=== PATIENT | male | born 1970 ===

== ENCOUNTER 2019-03-29 08:47 | Observation (INO) | payer OTHER ==
--- NOTE | 2019-03-29 09:03 | Event Note ---
ED Screening Note ED Screening Note: woke up with cp on coumadin sp cva 6-19 also on metformin glipizide statin to main This initial assessment/diagnostic orders/clinical plan/treatment(s) is/are subject to change based on patients health status, clinical progression and re- assessment by fellow clinical providers in the ED. Further treatment and workup at subsequent clinical providers discretion. Patient/guardian urged not to elope from the ED as their condition may be serious if not clinically assessed and managed. Initial orders include:
[2019-03-29 09:21] LABS: Basophils % (Auto) 0.8 % (0.0-1.8); Eosinophils # (Auto) 0.3 K/mm3 (0.0-0.4); Eosinophils % (Auto) 4.7 % (0.0-4.3); Hematocrit 35.6 % (35.5-45.6); Hemoglobin 12.7 gm/dl (11.8-15.2); Lymphocytes # (Auto) 2.2 K/mm3 (1.2-5.4); Lymphocytes % (Auto) 42.2 % (13.4-35.0); Mean Corpuscular HGB Conc 36 % (32-34); Mean Corpuscular Volume 84 fl (84-94); Monocytes # (Auto) 0.4 K/mm3 (0.0-0.8); Monocytes % (Auto) 6.8 % (0.0-7.3); Platelet Count 152 K/mm3 (140-440); Red Blood Count 4.22 M/mm3 (3.65-5.03)
[2019-03-29 09:42] LABS: Alanine Aminotransferase 37 units/L (7-56); Albumin 3.8 g/dL (3.9-5); BUN/Creatinine Ratio 7; Blood Urea Nitrogen 4 mg/dL (9-20); Calcium 9.2 mg/dL (8.4-10.2); Hemolysis Index 15
--- NOTE | 2019-03-29 09:49 | XRay Report ---
ROUTINE CHEST, TWO VIEWS: HISTORY: chest pain. The trachea, heart, mediastinal contour, lung peck and bony thorax are unremarkable. IMPRESSION: Unremarkable chest x-ray.
[2019-03-29 09:57] LABS: INR 2.02 (0.87-1.13)
--- NOTE | 2019-03-29 11:01 | Emergency Department Report ---
ED Chest Pain HPI - General Chief Complaint: Chest Pain Stated Complaint: CHEST PAIN Time Seen by Provider: 03/29/19 09:15 Source: family Mode of arrival: Ambulatory Limitations: No Limitations, Language Barrier - History of Present Illness Initial Comments: Patient is a 48-year-old male that presents to emergency room with complaints of chest pain. Patient states his chest pain started 3 hours ago. Patient states he's had nausea without vomiting. His pain is not radiating. He states he has a history of CVA, diabetes and hypertension. Patient states his CVA was February of this year. Patient states his pain is a 5 out of 10 and is a pressure in the center of his chest. -: Sudden Onset: during rest Pain Location: substernal, left chest Pain Radiation: none Severity: moderate Severity scale (0 -10): 5 Quality: tightness, heaviness, pressure Consistency: constant Improves With: rest Worsens With: exertion re: nausea. denies: vomting, diaphoresis, dyspnea, sense of impending doom Other Symptoms: denies: cough, fever, syncope, rash, acid taste in mouth, leg swelling, palpitations, burping Treatments Prior to Arrival: none Aspirin use within the Past 7 Days: (1) Yes - Related Data On Oral Contraceptives: No Allergies Allergy/AdvReac Type Severity Reaction Status Date / Time No Known Allergies Allergy Unverified 03/29/19 12:10 Heart Score - HEART Score History: Moderately suspicious EKG: Non-specific Age: 45-65 Risk factors: > 3 risk factors or hx of atherosclerotic disease Troponin: < normal limit HEART Score: 5 ED Review of Systems ROS: Stated complaint: CHEST PAIN Other details as noted in HPI Constitutional: denies: chills, fever Eyes: denies: eye pain, eye discharge, vision change ENT: denies: ear pain, throat pain Respiratory: denies: cough, shortness of breath, wheezing Cardiovascular: chest pain. denies: palpitations Endocrine: no symptoms reported Gastrointestinal: denies: abdominal pain, nausea, diarrhea Genitourinary: denies: urgency, dysuria Musculoskeletal: denies: back pain, joint swelling, arthralgia Skin: denies: rash, lesions Neurological: denies: headache, weakness, paresthesias Psychiatric: denies: anxiety, depression Hematological/Lymphatic: denies: easy bleeding, easy bruising ED Past Medical Hx - Past Medical History Previous Medical History?: Yes Hx Hypertension: Yes Hx CVA: Yes (March 2019) Hx Diabetes: Yes - Surgical History Past Surgical History?: Yes Additional Surgical History: for CVA - Family History Family history: no significant - Social History Smoking Status: Never Smoker Substance Use Type: None ED Physical Exam - General Limitations: No Limitations, Language Barrier General appearance: alert, in no apparent distress - Head Head exam: Present: atraumatic, normocephalic - Eye Eye exam: Present: normal appearance - ENT ENT exam: Present: mucous membranes moist - Neck Neck exam: Present: normal inspection - Respiratory Respiratory exam: Present: normal lung sounds bilaterally. Absent: respiratory distress, chest wall tenderness, accessory muscle use - Cardiovascular Cardiovascular Exam: Present: regular rate, normal rhythm. Absent: systolic murmur, diastolic murmur, rubs, gallop - GI/Abdominal GI/Abdominal exam: Present: soft, normal bowel sounds - Rectal Rectal exam: Present: deferred - Extremities Exam Extremities exam: Present: normal inspection - Back Exam Back exam: Present: normal inspection - Neurological Exam Neurological exam: Present: alert, oriented X3 - Psychiatric Psychiatric exam: Present: normal affect, normal mood - Skin Skin exam: Present: warm, dry, intact, normal color. Absent: rash ED Course Vital Signs 03/29/19 03/29/19 03/29/19 09:04 09:27 09:31 Temperature 98.1 F Pulse Rate 87 74 69 Respiratory 16 13 Rate Blood Pressure 112/74 130/79 O2 Sat by Pulse 100 99 Oximetry 03/29/19 03/29/19 03/29/19 09:45 10:00 10:15 Temperature Pulse Rate 70 65 71 Respiratory 12 14 15 Rate Blood Pressure 130/79 130/79 129/77 O2 Sat by Pulse 99 98 98 Oximetry 03/29/19 03/29/19 03/29/19 10:31 10:45 11:00 Temperature Pulse Rate 64 58 L 59 L Respiratory 12 13 12 Rate Blood Pressure 130/79 130/79 129/77 O2 Sat by Pulse 99 100 99 Oximetry 03/29/19 03/29/19 03/29/19 11:15 11:30 11:45 Temperature Pulse Rate 69 71 66 Respiratory 12 14 13 Rate Blood Pressure 131/75 131/75 129/77 O2 Sat by Pulse 98 98 98 Oximetry 0603/29/19 03/29/19 12:00 12:15 12:31 Temperature Pulse Rate 61 61 82 Respiratory 13 14 13 Rate Blood Pressure 131/72 131/72 131/72 O2 Sat by Pulse 99 97 99 Oximetry 03/29/19 12:45 Temperature Pulse Rate 84 Respiratory 12 Rate Blood Pressure 131/72 O2 Sat by Pulse 98 Oximetry - Reevaluation(s) Reevaluation #1: Discussed all results with patient. Patient will be admitted to the hospitalist service. Patient agrees to plan of care. 03/29/19 11:20 - Consultations Consultation #1: 03/29/19 11:20 Hospitalist consulted for admission. Hospitalist to admit patient. Hospitalist to assume care patient. JOSUÉ score - Josué Score Age > 65: (0) No Aspirin use within the Past 7 Days: (1) Yes 3 or more CAD Risk Factors: (1) Yes 2 or more Angina events in past 24 hrs: (0) No Known CAD with more than 50% Stenosis: (0) No Elevated Cardiac Markers: (0) No ST Deviation Greater than 0.5mm: (0) No JOSUÉ Score: 2 ED Medical Decision Making - Lab Data Result diagrams: 03/29/19 09:07 03/29/19 09:07 - EKG Data -: EKG Interpreted by Me EKG shows normal: sinus rhythm, axis, intervals, QRS complexes, ST-T waves Rate: normal - EKG Data Interpretation: LVH - Radiology Data Radiology results: report reviewed, image reviewed interpreted by me: No acute findings on chest x-ray. ROUTINE CHEST, TWO VIEWS: HISTORY: chest pain. The trachea, heart, mediastinal contour, lung peck and bony thorax are unremarkable. IMPRESSION: Unremarkable chest x-ray. - Medical Decision Making Patient is a 48-year-old male that presents to emergency with chest pain. Patient will be admitted to the hospitalist service. Patient's initial cardiac workup was negative. Patient's EKG shows ST elevation secondary to LVH and early re-pole. Patient's troponin negative. Patient's labs unremarkable. - Differential Diagnosis chest pain. ACS. Critical Care Time: Yes Critical care attestation.: If time is entered above; I have spent that time in minutes in the direct care of this critically ill patient, excluding procedure time. Critical Care Time: 35 MINUTES ED Disposition Clinical Impression: Essential hypertension Chest pain Qualifiers: Chest pain type: unspecified Qualified Code(s): R07.9 - Chest pain, unspecified Diabetes Qualifiers: Diabetes mellitus type: type 2 Diabetes mellitus care home insulin use: unspecified care home insulin use status Diabetes mellitus complication status: without complication Qualified Code(s): E11.9 - Type 2 diabetes mellitus without complications Disposition: OP ADMIT IP TO THIS HOSP Is pt being admited?: Yes Does the pt Need Aspirin: No Condition: Critical Time of Disposition: 11:24
[2019-03-29] MEDS ORDERED: ASPIRIN PO ONE (11:28)
[2019-03-29] MEDS ORDERED: ASPIRIN ONE (12:28)
[2019-03-29] MEDS ORDERED: SODIUM CHLORIDE FLUSH SYRINGE 10 ML IV PRN (18:39)
[2019-03-29] MEDS ORDERED: ZOFRAN IV PRN (18:39)
[2019-03-29] MEDS ORDERED: MORPHINE IV PRN (18:39)
[2019-03-29] MEDS ORDERED: TYLENOL PO PRN (18:39)
--- NOTE | 2019-03-29 18:39 | History and Physical Report ---
History of Present Illness Date of examination: 03/29/19 Date of admission: 03/29/19 11:24 Chief complaint: Chest pain for 3 hours History of present illness: Patient is a 48-year-old male that presents to emergency room with complaints of chest pain. Patient states his chest pain started 3 hours ago. Patient states he's had nausea without vomiting. His pain is not radiating. He states he has a history of CVA, diabetes and hypertension. Patient states his CVA was February of this year. Patient states his pain is a 5 out of 10 and is a pressure in the center of his chest.No exacerbating or relieving factors. Past Medical History Previous Medical History?: Yes Hypertension: Yes CVA: Yes (March 2019) Diabetes: Yes Surgical History Past Surgical History?: Yes Additional Surgical History: for CVA Family History Family history: no significant Social History Smoking Status: Never Smoker Substance Use Type: None Review of Systems ROS: Stated complaint: CHEST PAIN Other details as noted in HPI Constitutional: denies: chills, fever Eyes: denies: eye pain, eye discharge, vision change ENT: denies: ear pain, throat pain Respiratory: denies: cough, shortness of breath, wheezing Cardiovascular: chest pain. denies: palpitations Endocrine: no symptoms reported Gastrointestinal: denies: abdominal pain, nausea, diarrhea Genitourinary: denies: urgency, dysuria Musculoskeletal: denies: back pain, joint swelling, arthralgia Skin: denies: rash, lesions Neurological: denies: headache, weakness, paresthesias Psychiatric: denies: anxiety, depression Hematological/Lymphatic: denies: easy bleeding, easy bruising Medications and Allergies Allergies Allergy/AdvReac Type Severity Reaction Status Date / Time No Known Allergies Allergy Unverified 03/29/19 12:10 Home Medications Medication Instructions Recorded Confirmed Last Taken Type Atorvastatin [Lipitor Tab] 80 mg PO QHS 03/29/19 03/29/19 Unknown History Nystatin [Nystatin SUSP] 5 ml PO QID 03/29/19 03/29/19 Unknown History Warfarin [Coumadin] 4 mg PO QDAY 03/29/19 03/29/19 Unknown History glipiZIDE [Glucotrol] 5 mg PO BID 03/29/19 03/29/19 Unknown History metFORMIN [Glucophage] 500 mg PO BID 03/29/19 03/29/19 Unknown History Exam - Constitutional Vitals: Temp Pulse Resp BP Pulse Ox 98.2 F 80 16 123/74 99 03/29/19 17:08 03/29/19 17:08 03/29/19 17:08 03/29/19 17:08 03/29/19 17:08 General appearance: Present: no acute distress, well-nourished - EENT Eyes: Present: PERRL ENT: hearing intact, clear oral mucosa - Neck Neck: Present: supple, normal ROM - Respiratory Respiratory effort: normal Respiratory: bilateral: CTA - Cardiovascular Heart rate: 78 Rhythm: regular Heart Sounds: Present: S1 & S2. Absent: rub, click - Extremities Extremities: no ischemia, pulses symmetrical, No edema Peripheral Pulses: within normal limits - Abdominal General gastrointestinal: Present: soft, non-tender, non-distended, normal bowel sounds Male genitourinary: Present: normal - Rectal Rectal Exam: deferred - Integumentary Integumentary: Present: clear, warm, dry - Musculoskeletal Musculoskeletal: gait normal, strength equal bilaterally - Psychiatric Psychiatric: appropriate mood/affect, intact judgment & insight - Neurologic Neurologic: CNII-XII intact, moves all extremities - Allied Health Allied health notes reviewed: nursing, case management Results - Labs CBC & Chem 7: 03/30/19 04:23 03/30/19 04:23 Labs: Laboratory Last Values WBC 5.3 K/mm3 (4.5-11.0) 03/29/19 09:07 RBC 4.22 M/mm3 (3.65-5.03) 03/29/19 09:07 Hgb 12.7 gm/dl (11.8-15.2) 03/29/19 09:07 Hct 35.6 % (35.5-45.6) 03/29/19 09:07 MCV 84 fl (84-94) 03/29/19 09:07 MCH 30 pg (28-32) 03/29/19 09:07 MCHC 36 % (32-34) H 03/29/19 09:07 RDW 15.0 % (13.2-15.2) 03/29/19 09:07 Plt Count 152 K/mm3 (140-440) 03/29/19 09:07 Lymph % (Auto) 42.2 % (13.4-35.0) H 03/29/19 09:07 [place] % (Auto) 6.8 % (0.0-7.3) 03/29/19 09:07 Eos % (Auto) 4.7 % (0.0-4.3) H 03/29/19 09:07 Baso % (Auto) 0.8 % (0.0-1.8) 03/29/19 09:07 Lymph # 2.2 K/mm3 (1.2-5.4) 03/29/19 09:07 [place] # 0.4 K/mm3 (0.0-0.8) 03/29/19 09:07 Eos # 0.3 K/mm3 (0.0-0.4) 03/29/19 09:07 Baso # 0.0 K/mm3 (0.0-0.1) 03/29/19 09:07 Seg Neutrophils % 45.5 % (40.0-70.0) 03/29/19 09:07 Seg Neutrophils # 2.4 K/mm3 (1.8-7.7) 03/29/19 09:07 PT 22.4 Sec. (12.2-14.9) H 03/29/19 09:07 INR 2.02 (0.87-1.13) H 03/29/19 09:07 APTT 36.0 Sec. (24.2-36.6) 03/29/19 09:07 Sodium 139 mmol/L (137-145) 03/29/19 09:07 Potassium 4.1 mmol/L (3.6-5.0) 03/29/19 09:07 Chloride 101.4 mmol/L (98-107) 03/29/19 09:07 Carbon Dioxide 26 mmol/L (22-30) 03/29/19 09:07 16 mmol/L 03/29/19 09:07 BUN 4 mg/dL (9-20) L 03/29/19 09:07 0.6 mg/dL (0.8-1.5) L 03/29/19 09:07 Estimated GFR > 60 ml/min 03/29/19 09:07 7 % 03/29/19 09:07 Glucose 126 mg/dL (75-100) H 03/29/19 09:07 POC Glucose 199 (70-105) H 03/29/19 16:04 Calcium 9.2 mg/dL (8.4-10.2) 03/29/19 09:07 0.50 mg/dL (0.1-1.2) 03/29/19 09:07 AST 20 units/L (5-40) 03/29/19 09:07 ALT 37 units/L (7-56) 03/29/19 09:07 58 units/L (35-129) 03/29/19 09:07 < 0.010 ng/mL (0.00-0.029) 03/29/19 14:34 6.5 g/dL (6.3-8.2) 03/29/19 09:07 3.8 g/dL (3.9-5) L 03/29/19 09:07 1.4 % 03/29/19 09:07 Short CBC 03/29/19 03/30/19 Range/Units 09:07 04:23 WBC 5.3 5.4 (4.5-11.0) K/mm3 Hgb 12.7 12.0 (11.8-15.2) gm/dl Hct 35.6 33.2 L (35.5-45.6) % Plt Count 152 141 (140-440) K/mm3 BMP 03/29/19 03/30/19 09:07 04:23 Sodium 139 139 Potassium 4.1 5.3 H D Chloride 101.4 101.1 Carbon Dioxide 26 27 BUN 4 L 8 L Creatinine 0.6 L 0.8 Glucose 126 H 129 H Calcium 9.2 10.7 H D Cardiac Enzymes 03/29/19 03/29/19 03/29/19 Range/Units 09:07 14:34 20:05 Troponin T < 0.010 < 0.010 < 0.010 (0.00-0.029) ng/mL 03/30/19 Range/Units 00:17 Troponin T < 0.010 (0.00-0.029) ng/mL Liver Function 03/29/19 03/30/19 Range/Units 09:07 04:23 Total Bilirubin 0.50 0.50 (0.1-1.2) mg/dL AST 20 23 (5-40) units/L ALT 37 34 (7-56) units/L Alkaline Phosphatase 58 83 (35-129) units/L Albumin 3.8 L 3.8 L (3.9-5) g/dL Urine 03/29/19 Range/Units 18:50 Urine Color Yellow (Yellow) Urine pH 6.0 (5.0-7.0) Ur Specific [place] 1.014 (1.003-1.030) Urine Protein <15 mg/dl (Negative) mg/dL Urine Glucose (UA) >=500 (Negative) mg/dL - Imaging and Cardiology EKG: report reviewed (SInus rhythm 73/min) Chest x-ray: report reviewed (NAF) Assessment and Plan Advance Directives: Yes (Full code) VTE prophylaxis?: Chemical Plan of care discussed with patient/family: Yes - Patient Problems (1) Chest pain Current Visit: Yes Status: Acute Qualifiers: Chest pain type: unspecified Qualified Code(s): R07.9 - Chest pain, u nspecified Plan to address problem: Chest pain r/o HI Serial troponins and Lexiscan in AM (2) Essential hypertension Current Visit: Yes Status: Chronic Plan to address problem: Cont antihypertensives (3) T2DM (type 2 diabetes mellitus) Current Visit: Yes Status: Chronic Qualifiers: Diabetes mellitus retirement insulin use: unspecified retirement insulin use status Plan to address problem: Cont Coverage Check A1c (4) DVT prophylaxis Current Visit: Yes Status: Acute Plan to address problem: On Lovenox
[2019-03-29 19:34] LABS: Bacteria,Urine 1+ /HPF (Negative); Bilirubin,Urine NEG (Negative); Blood,Urine SM (Negative); Color,Urine Yellow (Yellow); Mucus,Urine FEW /HPF; Protein,Urine <15 mg/dL mg/dL (Negative); Urobilinogen,Urine < 2.0 mg/dL (<2.0); WBC,Urine < 1.0 /HPF (0.0-6.0)
[2019-03-29] MEDS: PEPCID PO SCH (21:57)
[2019-03-29] MEDS: HumaLOG SUB-Q SCH (21:57)
[2019-03-29] MEDS: SODIUM CHLORIDE FLUSH SYRINGE 10 ML IV SCH (21:58)
[2019-03-30 04:54] LABS: Basophils % (Auto) 0.8 % (0.0-1.8); Eosinophils # (Auto) 0.2 K/mm3 (0.0-0.4); Eosinophils % (Auto) 4.3 % (0.0-4.3); Hematocrit 33.2 % (35.5-45.6); Lymphocytes # (Auto) 2.2 K/mm3 (1.2-5.4); Lymphocytes % (Auto) 41.2 % (13.4-35.0); Mean Corpuscular HGB Conc 36 % (32-34); Mean Corpuscular Volume 84 fl (84-94); Monocytes # (Auto) 0.4 K/mm3 (0.0-0.8); Monocytes % (Auto) 7.4 % (0.0-7.3); Platelet Count 141 K/mm3 (140-440); Red Blood Count 3.97 M/mm3 (3.65-5.03); Red Cell Distribution Width 14.9 % (13.2-15.2)
[2019-03-30 05:21] LABS: Alanine Aminotransferase 34 units/L (7-56); Albumin 3.8 g/dL (3.9-5); BUN/Creatinine Ratio 10; Blood Urea Nitrogen 8 mg/dL (9-20); Calcium 10.7 mg/dL (8.4-10.2); Hemolysis Index 13
[2019-03-30] MEDS ORDERED: LEXISCAN IV ONE (08:15)
[2019-03-30] MEDS: HumaLOG SUB-Q SCH ×2 (09:04→13:39)
[2019-03-30] MEDS ORDERED: KIONEX PO NR (09:05)
--- NOTE | 2019-03-30 09:07 | Progress Note ---
Assessment and Plan Assessment and plan: Patient is a 48 yo Danish speaking man with a history of CVA with right eye diplopia (wears a patch), ?afib on Warfarin, type 2 DM and hypertension who presents with chest pains. His family at bedside were the Interpreters. He is from [place] and needs PCP. He needs medication refills. He really doesn't know why he is on Warfarin. He denies blood clots. Chest pains, stress test negative, costochronditis most likely Hyperkalemia: repeat and if still keenan then treat with kayexalate, HyperCalcemia: IVFs, repeat calcium suspect Afib, sr currently, INR is 2.02 Type 2 DM: SSI History Interval history: Patient was seen and examined. Follow-up on current diagnosis chest pains. No overnight events reported to me. Patient denies any shortness breath, nausea/vomiting or severe headaches. Imaging, nursing note, chart, labs and old chart reviewed. Discussed with patient. Gen: WDWN, NAD, Awake, Alert, Orientated HEENT: NCAT, EOMI, PERRL, OP Clear Neck: supple, no adenopathy, no thyromegaly, no JVD CVS/Heart: RRR, normal S1S2, pulses present bilaterally Chest/Lungs: CTA B, Symmetrical chest expansion, good air entry bilaterally GI/Abdomen: soft, NTND, good bowel sounds, no guarding or rebound /Bladder: no suprapubic tenderness, no CVA or paraspinal tenderness Extermity/Skin: no c/c/e, no obvious rash MSK: FROM x 4 Neuro: CN 2-12 grossly intact, no new focal deficits Psych: calm Hospitalist Physical - Constitutional Vitals: Temp Pulse Resp BP Pulse Ox 98.0 F 76 18 111/73 98 03/30/19 04:44 03/30/19 05:00 03/30/19 04:44 03/30/19 04:44 03/30/19 04:44 General appearance: Present: no acute distress, well-nourished Results - Labs CBC & Chem 7: 03/30/19 04:23 03/30/19 04:23 Labs: Laboratory Last Values WBC 5.4 K/mm3 (4.5-11.0) 03/30/19 04:23 RBC 3.97 M/mm3 (3.65-5.03) 03/30/19 04:23 Hgb 12.0 gm/dl (11.8-15.2) 03/30/19 04:23 Hct 33.2 % (35.5-45.6) L 03/30/19 04:23 MCV 84 fl (84-94) 03/30/19 04:23 MCH 30 pg (28-32) 03/30/19 04:23 MCHC 36 % (32-34) H 03/30/19 04:23 RDW 14.9 % (13.2-15.2) 03/30/19 04:23 Plt Count 141 K/mm3 (140-440) 03/30/19 04:23 Lymph % (Auto) 41.2 % (13.4-35.0) H 03/30/19 04:23 [place] % (Auto) 7.4 % (0.0-7.3) H 03/30/19 04:23 Eos % (Auto) 4.3 % (0.0-4.3) 03/30/19 04:23 Baso % (Auto) 0.8 % (0.0-1.8) 03/30/19 04:23 Lymph # 2.2 K/mm3 (1.2-5.4) 03/30/19 04:23 [place] # 0.4 K/mm3 (0.0-0.8) 03/30/19 04:23 Eos # 0.2 K/mm3 (0.0-0.4) 03/30/19 04:23 Baso # 0.0 K/mm3 (0.0-0.1) 03/30/19 04:23 Seg Neutrophils % 46.3 % (40.0-70.0) 03/30/19 04:23 Seg Neutrophils # 2.5 K/mm3 (1.8-7.7) 03/30/19 04:23 PT 22.4 Sec. (12.2-14.9) H 03/29/19 09:07 INR 2.02 (0.87-1.13) H 03/29/19 09:07 APTT 36.0 Sec. (24.2-36.6) 03/29/19 09:07 Sodium 139 mmol/L (137-145) 03/30/19 04:23 Potassium 5.3 mmol/L (3.6-5.0) H D 03/30/19 04:23 Chloride 101.1 mmol/L (98-107) 03/30/19 04:23 Carbon Dioxide 27 mmol/L (22-30) 03/30/19 04:23 15 mmol/L 03/30/19 04:23 BUN 8 mg/dL (9-20) L 03/30/19 04:23 0.8 mg/dL (0.8-1.5) 03/30/19 04:23 Estimated GFR > 60 ml/min 03/30/19 04:23 10 % 03/30/19 04:23 Glucose 129 mg/dL (75-100) H 03/30/19 04:23 POC Glucose 114 (70-105) H 03/30/19 08:12 7.4 % (4-6) H 03/29/19 20:05 Calcium 10.7 mg/dL (8.4-10.2) H D 03/30/19 04:23 0.50 mg/dL (0.1-1.2) 03/30/19 04:23 AST 23 units/L (5-40) 03/30/19 04:23 ALT 34 units/L (7-56) 03/30/19 04:23 83 units/L (35-129) 03/30/19 04:23 < 0.010 ng/mL (0.00-0.029) 03/30/19 00:17 6.8 g/dL (6.3-8.2) 03/30/19 04:23 3.8 g/dL (3.9-5) L 03/30/19 04:23 1.3 % 03/30/19 04:23 Yellow (Yellow) 03/29/19 18:50 Clear (Clear) 03/29/19 18:50 6.0 (5.0-7.0) 03/29/19 18:50 Ur Specific [place] 1.014 (1.003-1.030) 03/29/19 18:50 <15 mg/dl mg/dL (Negative) 03/29/19 18:50 >=500 mg/dL (Negative) 03/29/19 18:50 Neg mg/dL (Negative) 03/29/19 18:50 Sm (Negative) 03/29/19 18:50 Neg (Negative) 03/29/19 18:50 Neg (Negative) 03/29/19 18:50 < 2.0 mg/dL (<2.0) 03/29/19 18:50 Ur Leukocyte Esterase Neg (Negative) 03/29/19 18:50 < 1.0 /HPF (0.0-6.0) 03/29/19 18:50 2.0 /HPF (0.0-6.0) 03/29/19 18:50 U Epithel Cells (Auto) < 1.0 /HPF (0-13.0) 03/29/19 18:50 1+ /HPF (Negative) 03/29/19 18:50 Few /HPF 03/29/19 18:50 Active Medications - Current Medications Current Medications: Generic Name Dose Route Start Last Admin Trade Name Freq PRN Reason Stop Dose Admin Acetaminophen 650 mg 03/29/19 18:39 Tylenol PO Q4H PRN Pain MILD(1-3)/Fever >100.5/WHEELER Famotidine 20 mg 03/29/19 22:00 03/29/19 21:57 Pepcid PO 20 mg BID CHRISTINE Administration Insulin Human Lispro 0 unit 03/29/19 22:00 03/29/19 21:57 Humalog SUB-Q 4 unit ACHS CHRISTINE Administration Protocol Morphine Sulfate 2 mg 03/29/19 18:39 Morphine IV Q4H PRN Pain, Moderate (4-6) Ondansetron HCl 4 mg 03/29/19 18:39 Zofran IV Q8H PRN Nausea And Vomiting Sodium Chloride 10 ml 03/29/19 22:00 03/29/19 21:58 Sodium Chloride Flush Syringe 10 Ml IV 10 ml BID CHRISTINE Administration Sodium Chloride 10 ml 03/29/19 18:39 Sodium Chloride Flush Syringe 10 Ml IV PRN PRN LINE FLUSH Sodium Polystyrene Sulfonate 30 gm 03/30/19 09:05 Kionex PO 03/30/19 09:06 ONCE ONE
[2019-03-30 11:07] VITALS: BP 128/70
[2019-03-30] MEDS: SODIUM CHLORIDE FLUSH SYRINGE 10 ML IV SCH (12:13)
[2019-03-30] MEDS: PEPCID PO SCH (12:13)
--- NOTE | 2019-03-30 13:39 | Discharge Summary ---
Providers - Providers Date of Admission: 03/29/19 11:24 Date of discharge: 03/30/19 Attending physician: ARMANDO CASEY [facility] Condition: Stable Hospital course: Patient is a 48 yo Arabic speaking man with a history of CVA with right eye diplopia (wears a patch), ?afib on Warfarin, type 2 DM and hypertension who presents with chest pains. His family at bedside were the Interpreters. He is from [place] and needs PCP. He needs medication refills. He really doesn't know why he is on Warfarin. He denies blood clots. Chest pains, stress test negative, costochronditis most likely Hyperkalemia: repeat and if still keenan then treat with kayexalate, HyperCalcemia: IVFs, repeat calcium suspect Afib, sr currently, INR is 2.02 Type 2 DM: SSI Disposition: DC- TO HOME OR SELFCARE Time spent for discharge: 35 minutes Core Measure Documentation - Palliative Care Palliative Care/ Comfort Measures: Not Applicable - Core Measures Any of the following diagnoses?: none - VTE Discharge Requirements Deep Vein Thrombosis/Pulmonary Embolism Present on Admission: No Has pt received <5 days of overlap therapy or INR<2.0: No Anticoagulant overlap therapy prescribed at discharge: No Contraindication No Overlap Therapy order at DC: Not Indicated Exam - Physical Exam Narrative exam: Gen: WDWN, NAD, Awake, Alert, Orientated HEENT: NCAT, EOMI, PERRL, OP Clear Neck: supple, no adenopathy, no thyromegaly, no JVD CVS/Heart: RRR, normal S1S2, pulses present bilaterally Chest/Lungs: CTA B, Symmetrical chest expansion, good air entry bilaterally GI/Abdomen: soft, NTND, good bowel sounds, no guarding or rebound /Bladder: no suprapubic tenderness, no CVA or paraspinal tenderness Extermity/Skin: no c/c/e, no obvious rash MSK: FROM x 4 Neuro: CN 2-12 grossly intact except vision, no new focal deficits Psych: calm - Constitutional Vitals: Temp Pulse Resp BP Pulse Ox 98.3 F 76 18 128/70 98 03/30/19 08:04 03/30/19 05:00 03/30/19 08:04 03/30/19 10:48 03/30/19 04:44 Plan Activity: other (no strenous activity unless cleared by PCP) Diet: low salt, diabetic Special Instructions: record blood sugar diary Follow up with: ASHLEY ACOSTARIVERSIDE MD LATONIA [Primary Care Provider] - 3-5 Days CLAIR HEALY MD [Staff Physician] - 3 Days Prescriptions: Atorvastatin Calcium [Lipitor] 80 mg PO QHS #30 tablet Warfarin [Coumadin] 4 mg PO QDAY #60 tablet metFORMIN [Glucophage] 500 mg PO BID #60 tablet glipiZIDE [Glucotrol] 5 mg PO BID #60 tablet Pantoprazole [Protonix] 40 mg PO QDAY #30 tablet
--- NOTE | 2019-03-30 23:11 | Treadmill Report ---
ORDERING PHYSICIAN: Senait Rivera MD INDICATION: Chest pain. FINDINGS: This is a suboptimal myocardial perfusion scan limited by body motion as well as by the patient having his left arm below his shoulder. There is no scintigraphic evidence of myocardial ischemia. There is evidence of a small basal fixed inferior wall defect of mild intensity. Gated wall imaging reveals normal left ventricular size, wall motion and ejection fraction measured at 84%. IMPRESSION: 1. Suboptimal perfusion scan limited by motion as well as by the patient having his left arm below his shoulder level. 2. There is no scintigraphic evidence of myocardial ischemia. There is evidence of a small fixed basal inferior wall defect most likely due to overlying diaphragmatic attenuation. 3. Gated wall imaging reveals normal left ventricular size. Normal wall motion and normal ejection fraction. 4. This is a low risk myocardial perfusion study associated with a 1-year cardiovascular event rate of less than 1%. [facility]# [id number] [place]
== END 2019-03-30 15:45 | disposition home or self-care (01) ==
LOC: ED 08:47 → 4A 11:24
PROVIDERS: ADMIT Internal Medicine; ATTEND Internal Medicine
DX: R07.89 Other chest pain (principal); I10 Essential (primary) hypertension; E11.9 Type 2 diabetes mellitus without complications; Z86.73 Personal history of transient ischemic attack (TIA), and cerebral infarction without residual deficits; Z79.899 Other long term (current) drug therapy; Z98.890 Other specified postprocedural states
CPT/HCPCS: 36415; 71046; 78452; 80053; 81001; 82962; 83036; 84132; 84484; 85025; 85610; 85730; 93005; 93010; 93017; 96372; 99291; A9502; G0378; J1815